=== PATIENT | male | born 1985 | race African-American/Black ===

== ENCOUNTER 2024-06-30 10:56 | Emergency (ER) | payer MEDICAID, SELFPAY ==
[2024-06-30 11:10] VITALS: BP 116/84; PULSE 83; RESP 20; TEMP 36.8; O2SAT 98; BMI 23.8
--- NOTE | 2024-06-30 11:28 | ED_ITS ---
HPI - General Adult General Chief complaint: Skin/Abscess/Foreign Body Stated complaint: head inj Time Seen by Provider: 06/30/24 11:14 Source: patient Mode of arrival: ambulatory Limitations: no limitations History of Present Illness ED Provider: Honorio Watson PA-C HPI narrative: 38-year-old male presents to the ED for itchy scalp for a couple of weeks. Patient states every time he scratched it gets worse. Patient states having this issue before in the past but never follow-up with the primary care provider. Patient denies any fever, chills, nausea, vomiting, headache, or dizziness. Patient states hair is dry and scaly. Patient denies any rash or itchiness elsewhere in the body. Patient denies any swelling of lips or tongue. Patient denies any known allergies. Related Data Previous Rx's ?Medication ?Instructions ?Recorded ketoconazole 2 % shampoo 1 appl topical 2XW 4 weeks #120 mL 06/30/24 Allergies Allergy/AdvReac Type Severity Reaction Status Date / Time No Known Allergies Allergy Verified 06/30/24 11:12 Review of Systems 2 Review of Systems: Itchy scalp Yes all other systems are reviewed and are negative [facility] Social History Social History Advance Directives: No Advance Directives Information Provided: Yes Physical Exam ED Vital Signs: Vital Signs - 24 hr 06/30/24 11:10 06/30/24 11:49 Temperature 98.2 F 98.2 F Pulse Rate 83 83 Respiratory Rate 20 20 Blood Pressure 116/84 116/84 Pulse Oximetry 98 98 Oxygen Delivery Method Room Air Room Air BMI result Body Mass Index 23.8 Const General: cooperative, healthy appearing, comfortable, no acute distress, well developed, alert, awake and Physically active Orientation/consciousness: patient oriented x3 HENMT Head: Yes normal to inspection, Yes No palpable skull fracture present, Yes normocephalic and Yes atraumatic Head images: 2 1. Seborrheic dermatitis versus tinea 2. Seborrheic dermatitis versus tinea Eyes General: appearance normal, both eyes and all related structures Neck Neck: Yes normal visual inspection, Yes full ROM, Yes no lymphadenopathy, Yes no meningeal signs, Yes trachea midline, Yes supple, No anterior neck swelling and No tender Chest Chest palpation & inspection: normal inspection of the chest and normal palpation of entire chest wall Resp Effort & Inspection: normal respiratory effort and able to speak in complete sentences Auscultation: clear to auscultation bilaterally Cardio Jugular venous distension: no JVD Heart sounds: S1 normal heart sound present and S2 normal heart sound present GI Inspection: Yes normal to inspection Palpation (GI): Soft to palpation, not firm, nontender, no guarding and not rigid General: No CVA tenderness and Yes no CVA tenderness Back/Spine/Pelvis Back: no CVA tenderness, No CVA tenderness and No back tenderness Skin General skin exam: no rashes or lesions noted, elasticity normal and turgor normal Neuro General: patient oriented x3, gait normal, tone normal, moves all extremities, Normal light touch and pain sensation, no meningeal signs, no focal motor deficits, CN's II-XI intact bilaterally and normal sensation to monofilament Extrem General: Yes normal to inspection, Yes full ROM and Yes capillary refill normal Psych Appearance: grossly normal, well kempt and not disheveled Medical Decision Making Medical Decision Making MDM Narrative: 38-year-old male presents to ED for itchy scalp that has been present off and on for weeks. Patient has had this problem before in the past. Patient states also some scaly maybe dandruff. Patient denies any fever, chills, chest pain or shortness of breath. Physical exam indicate tinea versus seborrheic dermatitis. Not suspecting Allan Cameron syndrome, psoriasis, folliculitis, cellulitis, abscess, impetigo, or MRSA. Vital signs stable. Not suspecting any life- threatening etiology. Patient explained worrisome signs of informed to return to the ED immediately. Differential Diagnosis Differential Diagnoses: The differential diagnosis associated with the presentation includes (Tinea, seborrheic dermatitis, folliculitis,) Admission/Observation Consideration of admission/observation: Escalation of care including admission/observation considered Independent Historian Clinical information obtained from an independent historian. History obtained from or confirmed by: Other (Patient) External Record Review External record reviewed: Other (Prior visits) Prescription Management I considered prescription management with: Other (Fungal cream) Discharge Plan Discharge Clinical Impression: Acute seborrheic dermatitis Patient Disposition: Home, Self-Care Instructions: Seborrheic Dermatitis (DC) Additional Instructions: You will need to follow up with primary care provider for re-evaluation. You will be discharged with antifungal shampoo to be placed on your scalp twice weekly for the next 4 weeks. Return to the ED for worsening rash, redness, pus discharge, swelling, painful mass, neck swelling, fever, chills, nausea, vomiting, or any other concerning symptoms. Prescriptions: New ketoconazole 2 % shampoo 1 appl topical 2XW 28 Days Qty: 120 0RF Rx Instructions: Apply 5 to 10ml to wet scalp, leave on 3 to 5 minutes. Referrals: [facility] [Provider Group] (Possible tinea versus seborrheic dermatitis) [facility] [Provider Group] (Possible tinea versus seborrheic dermatitis) Interventions: ED Discharge Assessment Last Done: 06/30/24 11:49 Discharge Date/Time: 06/30/24 12:15 Print Language: Kristi Ren
[2024-06-30 11:49] VITALS: BP 116/84; PULSE 83; RESP 20; TEMP 36.8; O2SAT 98
== END 2024-06-30 12:15 | disposition home or self-care (01) ==
PROVIDERS: Emergency Provider Emergency Medicine
DX: L21.9 Seborrheic dermatitis, unspecified (principal)
CPT/HCPCS: 99282; 99283

== ENCOUNTER 2025-06-30 07:58 | Emergency (ER) | payer MEDICAID, SELFPAY ==
[2025-06-30 08:03] VITALS: BP 116/83; PULSE 78; RESP 20; TEMP 36.1; O2SAT 99; BMI 28.5
--- NOTE | 2025-06-30 08:06 | ED_ITS ---
HPI - General Adult General Chief complaint: Skin/Abscess/Foreign Body Stated complaint: rash on head? Time Seen by Provider: 06/30/25 08:09 Source: patient and educational sign language interpreter (all interactions with this patient were facilitated with an [facility] approved [place]ese Creole educational sign language interpreter) Mode of arrival: ambulatory Limitations: language barrier (all interactions with this patient were facilitated with an [facility] approved [place] Creole educational sign language interpreter) History of Present Illness ED Provider: Michelle Jefferson PA-C HPI narrative: Patient is a 39 year old assigned male at with a history of seborrheic dermatitis presenting to the emergency department today requesting a refill of his antifungal shampoo. Patient states that his child misplaced his antifungal shampoo for his seborrheic dermatitis and he would like a refill. Patient denies any other complaints at this time. Related Data Previous Rx's ?Medication ?Instructions ?Recorded ketoconazole 2 % shampoo 1 appl topical 2XW 4 weeks # 120 mL 06/30/24 ketoconazole 2 % shampoo 1 appl topical 2XW #120 mL 1 08/31/24 Allergies Allergy/AdvReac Type Severity Reaction Status Date / Time No Known Allergies Allergy Verified 06/30/25 08:06 Review of Systems 2 Constitutional: Constitutional: Reports as per HPI Eyes: Eyes: Reports as per HPI ENT: Reports as per HPI Cardiovascular: Cardiovascular: Reports as per HPI Respiratory: Respiratory: Reports as per HPI Gastrointestinal: Gastrointestinal: Reports as per HPI Genitourinary: Genitourinary: Reports as per HPI Musculoskeletal: Musculoskeletal: Reports as per HPI Integumentary/Breasts: Skin/Breast: Reports as per HPI Neurologic: Reports as per HPI Psychiatric: Psychiatric: Reports as per HPI Endocrine: Endocrine: Reports as per HPI Hematologic/Lymphatic: Hematologic/Lymphatic: Reports as per HPI Allergic/Immunologic: Allergic/Immunologic: Reports as per HPI PMF Past Medical History Attestation statement: The following information was validated with the patient. Source: old records reviewed and nursing notes reviewed Social History Social History Advance Directives: No Advance Directives Information Provided: Yes Do you have a plan to hurt others: No Plan Physical Exam ED Vital Signs: Vital Signs - 24 hr 06/30/25 08:03 06/30/25 08:11 Temperature 97.0 F 97.0 F Pulse Rate 78 78 Respiratory Rate 20 20 Blood Pressure 116/83 116/83 Pulse Oximetry 99 99 Oxygen Delivery Method Room Air Room Air BMI result Body Mass Index 28.5 Const General: cooperative, no acute distress, alert and awake Nutritional Appearance: well nourished Orientation/consciousness: patient oriented x3 [facility] Other: Head: Yes atraumatic Ears: hearing grossly normal bilaterally and external ears normal General nose exam: Normal external nose present, no nasal discharge noted and no epistaxis Face and sinus: Yes normal facial exam, No abrasion and No laceration Mouth: Normal oral and palatal mucosa present, no drooling and no muffled voice Eyes General: appearance normal, both eyes and all related structures Periorbital: periorbital findings normal Eyelids: Yes eyelids normal Conjunctivae: conjunctivae normal Pupils: Equal, round and reactive pupils present EOM: EOMs intact bilaterally Neck Neck: Yes normal visual inspection and Yes full ROM Resp Effort & Inspection: normal respiratory effort and able to speak in complete sentences Neuro General: patient oriented x3, moves all extremities and CN's II-XI intact bilaterally Cranial nerves: Yes Equal, round and reactive pupils present Cognition (Neuro): normal cognition Extrem General: Yes normal to inspection, Yes full ROM and Yes capillary refill normal Psych Appearance: grossly normal Mental Status: mental status grossly normal Affect: normal affect Attitude: cooperative Thought process: Normal thought process present Thought content: Normal thought content present Insight: Good insight present (Psych) Medical Decision Making Medical Decision Making MDM Narrative: Patient is a 39 year old assigned male at with a history of seborrheic dermatitis presenting to the emergency department today requesting a refill of his antifungal shampoo. Patient's physical exam was as noted in the physical exam portion of this note. I explained my physical exam findings to the patient. I answered all questions asked by the patient. I stressed the importance of the patient taking his medication as directed (either prescribed or as the over the counter packaging recommends). I stressed the importance of the patient following up with his primary care provider and a information operator. I stressed the importance of the patient returning to the emergency department immediately if his symptoms were to worsen or if he were to develop any dizziness, shortness of breath, difficulty breathing, chest pain, blurry vision, loss of vision, nausea, vomiting, abdominal pain, fever, chills, back pain, or any other complaints. Patient verbalized agreement and understanding with this treatment plan and discharge. Differential Diagnosis Differential Diagnoses: The differential diagnosis associated with the presentation includes Seborrheic Dermatitis Admission/Observation Consideration of admission/observation: Escalation of care including admission/observation considered Patient would have been admitted to the hospital had his clinical presentation warranted hospital admission. Prescription Management I considered prescription management with: Other (anit-fungal shampoo prescribed) Discharge Plan Discharge Clinical Impression: Seborrheic dermatitis Patient Disposition: Home, Self-Care Instructions: Seborrheic Dermatitis (DC) Additional Instructions: Use your shampoo as prescribed and follow up with a information operator. [facility] [address] [phone] call to schedule appointment IF you are prescribed home medications and/or you are taking over the counter medications at home - it is very important you continue to do so as prescribed / directed unless told otherwise by a healthcare provider. Follow up with your primary care provider. Do your best to stay well hydrated and rest. Return to the emergency department immediately if your symptoms worsen or if you develop any numbness, tingling, dizziness, shortness of breath, difficulty breathing, chest pain, blurry vision, loss of vision, nausea, vomiting, abdominal pain, fever, chills, back pain, or any other complaints. Please see the information below about our Patient Portal. If you are not yet enrolled in the [facility] Patient Portal, you will receive an enrollment email invitation following your visit to any [facility] care setting. You may also self-enroll in the Patient Portal by visiting our website: [email or web address] The following information is required to access the Patient Portal: - Your [facility] Medical Record Number - Your personal home email address (must match what is in your electronic medical record, Registration staff can assist with this) - Name - Date of Capabilities of the Patient Portal: - Message some providers - View upcoming appointments - Access your health summary, medical history, and visit history - View current conditions and allergies - View procedure and lab results - View your medications, including guidelines, side effects, and precautions - Complete pre-appointment questionnaires requested by your provider - Ready summary reports of your office visits and procedures To access the Patient Portal Mobile [employer], follow these directions: - Search [employer] in the [employer] Store or [employer] Store - Download the [employer] - Search for [facility] - Enter your login/password Prescriptions: New ketoconazole 2 % shampoo 1 appl topical 2XW Qty: 120 0RF Rx Instructions: Use this on your body during your showers. Shower after all exercise activity. Use a new towel after every shower. No Action ketoconazole 2 % shampoo 1 appl topical 2XW 28 Days Qty: 120 0RF Rx Instructions: Apply 5 to 10ml to wet scalp, leave on 3 to 5 minutes. Interventions: ED Discharge Assessment Last Done: 06/30/25 08:11 Discharge Date/Time: 06/30/25 08:22 Print Language: Kristi Ren
[2025-06-30 08:11] VITALS: BP 116/83; PULSE 78; RESP 20; TEMP 36.1; O2SAT 99
--- OUTSIDE RECORDS SUMMARY | 2025-06-30 08:23 | XMS_ITS | Clinical Summary ---
Author Organization [employer] Address [address] [place] [address] [address] [place] [address] Care Team Providers Care Heat Treater Name Role Phone Unavailable Primary Care Provider Unavailabl e Social History Tobacco Use Types Packs/Day Years Used Date Smoking Tobacco: Never Assessed Sex and Gender Information Value Date Recorded Sex Assigned at Male 05/26/2024 1:37 PM EDT Legal Sex Male 1:31 PM EDT Gender Identity Male 05/26/2024 1:37 PM EDT Sexual Orientation Straight 05/26/2024 1: 37 PM EDT Plan of Treatment Health Maintenance Due Date Last Done Comments Depression Screening 1985 HIV Screening 1985 Lipid Panel 1985 SDOH Screening 1985 Disability Screening 1985 Alcohol/Substance Use Screening 1997 Tobacco Screening 1997 Family Planning (PISQ) 2000 HPV Vaccines (1 - Male 3-dos e series) 2000 Hepatitis C Screening 2003 DTaP/Tdap/Td Vaccines (1 - Tdap) 2004 Hepatitis B Vaccines (1 of 3 - 19+ 3-dose series) 2004 COVID-19 Vaccine (1 - 2024-2 6 season) 2025 Influenza Vaccine (#1) 2025 Zoster Vaccines (1 of 2) 2035 RSV Patients and Pa tients Aged 60 years or older (1 - 1-dose 75+ series) 2060 HIB Vaccines Aged Out No longer eligi ble based on patient's age to complete this topic Hepatitis A Vaccines Aged Out No long er eligible based on patient's age to complete this topic IPV Vaccines Aged Out No longer eligi ble based on patient's age to complete this topic Meningococcal B Vaccine Aged Out No l onger eligible based on patient's age to complete this topic Meningococcal Vaccine Aged Out No fidelia benoit eligible based on patient's age to complete this topic Pneumococcal Vaccine: Pediat rics (0 to 5 Years) and At-Risk Patients (6 to 49) Years Aged Out No longer eligible b ased on patient's age to complete this topic RSV under 20 months Aged Out No longe r eligible based on patient's age to complete this topic Rotavirus Vaccines Aged Out No longer eligible based on patient's age to complete this topic [facility] [place] [id number] [facility] C3
== END 2025-06-30 08:22 | disposition home or self-care (01) ==
LOC: HO.ED 08:20
PROVIDERS: Emergency Provider Emergency Medicine
DX: L21.9 Seborrheic dermatitis, unspecified (principal)
CPT/HCPCS: 99282; 99283